=== PATIENT | male | born 1960 | race Caucasian/White ===

== ENCOUNTER → 2024-09-01 07:06 | Outpatient (REF) | payer BC, SELFPAY ==
[2024-09-01] VITALS (9 sets, daily range): BP systolic 52–143; BP diastolic 73–98
[2024-09-01 07:51] LABS: Hematocrit 47.1 % (39.0-52.0); Hemoglobin 16.6 g/dL (13.0-18.0); Mean Corp Hgb Conc. 35.2 g/dL (33.0-37.0); Mean Corpuscular Hgb 32.5 pg (27.0-31.0); Mean Corpuscular Volume 92.2 fL (80.0-94.0); Mean Platelet Volume 10.3 fL (7.4-10.4); Platelet Count 209 10^3/uL (130-400); Red Blood Cell Count 5.11 10^6/uL (4.70-6.10); Red Cell Dist. Width 11.9 % (11.5-14.5); White Blood Cell Count 9.1 10^3/uL (4.8-10.8)
[2024-09-01 07:54] LABS: INR 0.92; PT 12.7 Sec (11.4-14.6)
[2024-09-01 08:18] LABS: Segmented Neutrophils 51 % (42-75)
[2024-09-01 08:19] LABS: Absolute Neutrophils -Man Diff 4.7 10^3/uL (1.4-6.5); Atypical Lymphocytes 4 %; Band Neutrophils 1 % (0-3); Eosinophils 24 % (0-6); Lymphocytes 14 % (20-51); Monocytes 5 % (2-9); Normal RBC Morphology Yes; Platelets Checked Yes; Total Cells Counted 100
[2024-09-01] MEDS: ATIVAN 0.5 MG IV (08:33)
[2024-09-01] MEDS: NSS (PRESERVATIVE FREE) 0.25 ML IV (08:33)
== END ==
LOC: RADI 07:06
PROVIDERS: ATTENDING PHYSICIAN Internal Medicine Hematology & Oncology; FAMILY PHYSICIAN Registered Nurse; OTHER PHYSICIAN Physician Assistant
DX: D72.10 Eosinophilia, unspecified (principal)
CPT/HCPCS: 88305; 88311; 88312; 36415; 38222; 77012; 85025; 85610; 88313